=== PATIENT | male | born 1985 | race Caucasian/White ===

== ENCOUNTER 2020-04-28 10:21 | Emergency (ER) | payer MEDICARE ==
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
[2020-04-28] MEDS ORDERED: Norco 10/325 MG Tablet PO ONE (12:14)
[2020-04-28] MEDS ORDERED: Norco 10/325 MG Tablet ONE (12:15)
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
[2020-04-28 12:35] VITALS: BP 134/89; PULSE 85; O2SAT 99
== END 2020-04-28 12:41 | disposition home or self-care (01) ==
LOC: ED 10:21
DX: S42.001A Fracture of unspecified part of right clavicle, initial encounter for closed fracture (principal); S42.101A Fracture of unspecified part of scapula, right shoulder, initial encounter for closed fracture; S22.39XA Fracture of one rib, unspecified side, initial encounter for closed fracture; S80.01XA Contusion of right knee, initial encounter; S70.01XA Contusion of right hip, initial encounter; S80.211A Abrasion, right knee, initial encounter; V86.56XA Driver of dirt bike or motor/cross bike injured in nontraffic accident, initial encounter; Y93.89 Activity, other specified; Y92.488 Other paved roadways as the place of occurrence of the external cause
CPT/HCPCS: 71260; 72125; 73030; 73562; 74177; 99283; L3650; A9270-GY

== ENCOUNTER 2025-03-31 17:23 | Emergency (ER) | payer MEDICARE ==
[2025-03-31 17:42] VITALS: TEMP 98.2; O2SAT 99
[2025-03-31] MEDS: solu-MEDROL 125 MG, Sterile H2O 10 ml 2 ML IV ONE (18:16)
[2025-03-31] MEDS ORDERED: Sodium Chloride 0.9% 1000 ML 1,000 ML ONE (18:17)
[2025-03-31] MEDS ORDERED: Zofran 4 MG/2 ML VIAL ONE (18:17)
[2025-03-31] MEDS: Sodium Chloride 0.9% 1000 ML 1,000 ML IV STA (18:18)
[2025-03-31] MEDS: Zofran 4 MG/2 ML VIAL IV ONE (18:19)
[2025-03-31 18:24] LABS: Absolute Neutrophil Ct (ANC) 4.62 x10^3/uL (1.78-5.38); BASOPHIL % 0.4 % (0.2-1.2); Basophil (Absolute #) 0.02 x10^3/uL (0.01-0.08); Eosinophil % 0.2 % (0.8-7.0); Eosinophil (Absolute #) 0.01 x10^3/uL (0.04-0.54); Hematocrit 39.3 % (40.1-51.0); Hemoglobin 13.4 g/dL (13.7-17.5); IMMATURE GRAN # 0.01 x10^3u/L (0.001-0.031); IMMATURE GRAN % 0.2 % (0.001-0.429); Lymphocyte (Absolute #) 0.55 x10^3/uL (1.32-3.57); Lymphocytes % 9.9 % (21.8-53.1); Mean Cell Volume 96.1 fL (79.0-92.2); Mean Corpuscular Hemoglobin 32.8 pg (25.7-32.2); Mean Corpuscular Hgb Concent. 34.1 g/dL (32.3-36.5); Mean Platelet Volume 9.4 fL (9.4-12.4); Monocyte (Absolute #) 0.33 x10^3/uL (0.30-0.82); Neutrophil % 83.3 % (34.0-67.9); Platelet Count 182 x10^3/uL (163-337); Red Blood Count 4.09 x10^6/uL (4.63-6.08); Red Cell Distribution Width 14.2 % (11.6-14.4); White Blood Count 5.5 x10^3/uL (4.23-9.07)
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
[2025-03-31 18:48] LABS: ALBUMIN 4.5 g/dL (3.5-5.0); ALKALINE PHOSPHATASE 83 U/L (38-126); ANION GAP 18.7 MEQ/L (5-15); BLOOD UREA NITROGEN 4 mg/dL (9-20); CHLORIDE 99 mmol/L (98-107); Calcium 9.7 mg/dL (8.4-10.2); Carbon Dioxide 22 mmol/L (22-30); Creatinine 1 0.69 mg/dL (0.66-1.25); EST GLOMERULAR FILTRATION RATE 120.7 ML/MIN; ETHYL ALCOHOL < 10 mg/dL (0-10); Glucose 183 mg/dL (74-106); MAGNESIUM 1.7 mg/dL (1.6-2.3); SGOT/AST 78 U/L (17-59); SGPT/ALT 38 U/L (0-50); SODIUM 135 mmol/L (135-145); Total Protein 7.5 g/dL (6.3-8.2)
--- NOTE | 2025-03-31 19:15 | XRAY ---
Indication: Pain following fall. Comparison: None 2 view left hip obtained. No bony, articular, or soft tissue abnormalities.
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
[2025-03-31 20:04] VITALS: PULSE 85
[2025-03-31 20:31] LABS: Slide Review 1 YES
[2025-03-31 20:41] VITALS: BP 139/93; RESP 25
== END 2025-03-31 20:53 | disposition home or self-care (01) ==
LOC: ED 17:23
DX: R55 Syncope and collapse (principal); Z79.899 Other long term (current) drug therapy; Z72.0 Tobacco use; M25.552 Pain in left hip
CPT/HCPCS: 36415; 70450; 73501; 80053; 82077; 83735; 85025; 93005; 96361; 96374; 99284; 99285; J2405